=== PATIENT | female | born 1955 | race American Indian/Alaskan Native ===

== ENCOUNTER 2016-04-22 16:49 | Outpatient (CLI) | payer OTHER | END 2016-04-22 16:50 | disposition home or self-care (01) | LOC: LABHHL 16:49 | PROVIDERS: ATTEND Internal Medicine Gastroenterology | DX: Z12.11 Encounter for screening for malignant neoplasm of colon (principal); Z86.010 Personal history of colon polyps | CPT/HCPCS: 88305 ==